=== PATIENT | female | born 1935 | race Caucasian/White ===

== ENCOUNTER 2017-08-01 20:25 | Emergency (ER) | payer OTHER ==
[~2017-08-01] VITALS: Ht 162.6 cm; Wt 93.9 kg
[~2017-08-01 20:25] MED LIST: ADULT LOW DOSE81 MG PO; ALBUTEROL2.5 MG/0.5 INH; ALENDRONATE SOD40 MG PO; ALL DAY ALLERGY10 M3 PO; ALLEGRA; ALLEGRA180 MG; AMARYL1 MG PO; AMITRIPTYLINE H50 M2 PO; AMITRIPTYLINE H50 M3 GT; ARICEPT 5 MG TAB5 MG PO; ARICEPT10 M1 PO; ATENOLOL 25 MG25 M1 PG; ATENOLOL 25MG T25 M1 PO; B COMPLEX1 EACH PO; BENTYL 20 MG TA20 M1 PO; BENTYL20 MG PO; CENTRUM SILVER1 EAC2 PO; COLACE100 MG PO; COUMADIN 1MG TAB1 M1 PO; COUMADIN 2 MG TA2 M1 PO; DIAZEPAM 5 MG5 M1 PO; DIAZEPAM 5 MG5 MG PO; DUONEB 2.5-0.5 M3 ML INH; ENOXAPARIN30 MG/0.1 SUBQ; FLAGYL 250 MG250 MG PO; FOSAMAX 70 MG T70 MG PO; GLUCOPHAGE XR500 MG; HCTZ PO; HYDROCHLOROTHIA25 M1 PO; HYDROCODON-ACE1 EAC7 PO; HYDROCODONE-APA1 TA1 PO; KEFLEX500 M1 PO; KEFLEX500 MG PO; LANTUS100 UNIT/M SUBQ; LEVAQUIN 500 M500 M2 PO; LIPITOR10 MG PO; LOVASTAT20; LOVASTAT20 PO; MEDROLDOSEPACK PO; METFORMIN HCL500 MG PO; METOCLOPRAMIDE10 MG PO; MIRALAX17 GM PO; NEURONTIN 300300 M1 PO; NORCO 5-325 TA1 EACH PO; NOVOLIN R100 UNIT/3 IJ; NOVOLOG100 UNIT/1 SUBQ; OMEPRAZOLE40 MG PO; PACERONE 200 M200 M1 PO; PAROXETINE HCL40 MG PO; PEXEVA30 MG PO; PREDNISONE 10 M10 MG PO; PROPRANOLOL 1010 MG PO; PROPRANOLOL 4040 M1 PO; PROTONIX40 M1 PO; PYRIDIUM200 MG PO; REQUIP0.5 MG PO; REQUIP3 MG PO; ROBITUSSIN100 MG/53 PO; SEROQUEL 50 MG50 MG PO; SINGULAIR 10 MG10 M1 PO; SUPER B COMPLE150 MG PO; TOPROL XL25 MG PO; TRAMADOL 50 MG50 MG; TYLENOL325 MG PO; VITAMIN B12; VITAMIN D32000 UNI1 PO; ZOLOFT50 MG PO
[2017-08-01] MEDS ORDERED: NORCO 5-325 TA1 EACH PO (20:51)
[2017-08-01] MEDS ORDERED: FLEXERIL PO (20:51)
[2017-08-01 21:05] VITALS: BP 147/78
== END 2017-08-01 21:05 | disposition home or self-care (01) ==
LOC: M.ERS 20:25
DX: G89.29 Other chronic pain (principal); M25.511 Pain in right shoulder; E11.9 Type 2 diabetes mellitus without complications; I48.91 Unspecified atrial fibrillation; Z90.710 Acquired absence of both cervix and uterus; Z98.890 Other specified postprocedural states; Z79.4 Long term (current) use of insulin

== ENCOUNTER 2017-11-04 17:33 | Emergency (ER) | payer OTHER ==
[~2017-11-04] VITALS: Ht 157.5 cm; Wt 90.7 kg
[~2017-11-04 17:33] MED LIST changes: +FLEXERIL PO
[2017-11-04] MEDS ORDERED: MIDODRINE HCL 55 M1 PO (17:52)
[2017-11-04] MEDS ORDERED: OMEPRAZOLE40 MG PO (17:53)
[2017-11-04] MEDS ORDERED: POTASSIUM20 PO (17:54)
[2017-11-04] MEDS ORDERED: LOVASTATIN 20 M20 MG PO (17:55)
[2017-11-04] MEDS ORDERED: CYMBALTA60 MG PO (17:55)
[2017-11-04] MEDS ORDERED: HYDROXYZINE HCL25 M1 PO (17:56)
[2017-11-04] MEDS ORDERED: MYSOLINE50 MG PO (17:57)
[2017-11-04] MEDS ORDERED: BUSPIRONE HCL10 MG PO (17:58)
[2017-11-04 18:04] LABS: ABSOLUTE BASOPHILS 0.1 thou/uL (0.0-0.2); ABSOLUTE EOSINOPHILS 0.1 thou/uL (0.0-0.7); ABSOLUTE LYMPHOCYTES 1.5 thou/uL (0.8-5.3); ABSOLUTE MONOCYTES 0.5 thou/uL (0.0-1.2); ABSOLUTE NEUTROPHILS 5.9 thou/uL (1.6-8.1); BASOPHILS 0.6 %; EOSINOPHILS 1.6 %; HEMATOCRIT 40.2 % (37.0-47.0); HEMOGLOBIN 12.8 gm/dL (12.0-15.0); LYMPHOCYTES 18.7 %; MCH 27.8 pg (26.0-34.0); MCHC 31.9 g/dL (28.0-37.0); MCV 87.2 fL (80.0-100.0); MONOCYTES 6.2 %; NUCLEATED RBCS 0 /100WBC; PLATELET COUNT* 240 thou/uL (150-400); POLYS 72.9 %; RBC 4.61 mil/uL (4.20-5.00); WBC 8.1 thou/uL (4.0-11.0)
[2017-11-04 18:05] LABS: CALCIUM 8.6 mg/dL (8.5-10.1); CREATININE 1.3 mg/dL (0.6-1.3); POTASSIUM 4.7 mmol/L (3.5-5.1)
[2017-11-04 18:09] LABS: ALBUMIN 3.1 g/dL (3.4-5.0); TOTAL BILIRUBIN 0.3 mg/dL (<0.1-1.0); TOTAL PROTEIN 6.8 g/dL (6.4-8.2)
[2017-11-04 19:30] LABS: URINE BILIRUBIN NEGATIVE (Negative); URINE BLOOD NEGATIVE (Negative); URINE CLARITY CLEAR; URINE COLOR YELLOW; URINE GLUCOSE-RANDOM 2+ (Negative); URINE KETONES NEGATIVE (Negative); URINE LEUKOCYTES-REFLEX NEGATIVE (Negative); URINE NITRITE-REFLEX NEGATIVE (Negative); URINE PROTEIN NEGATIVE (Negative); URINE SPECIFIC GRAVITY >= 1.030 (1.005-1.030); URINE UROBILINOGEN 0.2 E.U./dl (0.2-1.0)
[2017-11-04 20:00] LABS: INR 1.1; PROTIME 10.7 Seconds (9.20-11.50)
[2017-11-04 20:45] VITALS: BP 134/80
== END 2017-11-04 20:45 | disposition home or self-care (01) ==
LOC: M.ERS 17:33
PROVIDERS: Nurse Practitioner Family
DX: S16.1XXA Strain of muscle, fascia and tendon at neck level, initial encounter (principal); M25.551 Pain in right hip; J44.9 Chronic obstructive pulmonary disease, unspecified; I10 Essential (primary) hypertension; I48.91 Unspecified atrial fibrillation; E11.9 Type 2 diabetes mellitus without complications; G30.9 Alzheimer's disease, unspecified; F02.80 Dementia in other diseases classified elsewhere, unspecified severity, without behavioral disturbance, psychotic disturbance, mood disturbance, and anxiety; W19.XXXA Unspecified fall, initial encounter; Y93.01 Activity, walking, marching and hiking; Y92.89 Other specified places as the place of occurrence of the external cause; Y99.8 Other external cause status

== ENCOUNTER 2018-05-14 10:54 | Emergency (ER) | payer OTHER ==
[~2018-05-14] VITALS: Ht 160 cm; Wt 86.2 kg
[~2018-05-14 10:54] MED LIST changes: +BUSPIRONE HCL10 MG PO; +CYMBALTA60 MG PO; +HYDROXYZINE HCL25 M1 PO; +LOVASTATIN 20 M20 MG PO; +MIDODRINE HCL 55 M1 PO; +MYSOLINE50 MG PO; +POTASSIUM20 PO
[2018-05-14] MEDS ORDERED: COUMADIN 2 MG TA2 M1 PO (11:17)
[2018-05-14] MEDS ORDERED: VITAMIN B COMP1 EACH PO (11:17)
[2018-05-14] MEDS ORDERED: PROPRANOLOL 1010 MG PO (11:18)
[2018-05-14] MEDS ORDERED: MIGRANOW KIT50 MG PO (11:18)
[2018-05-14] MEDS ORDERED: LASIX 20 MG TAB20 MG PO (11:19)
[2018-05-14] MEDS ORDERED: IRON325 PO (11:19)
[2018-05-14] MEDS ORDERED: VITAMIN D1000 UNI1 PO (11:19)
[2018-05-14] MEDS ORDERED: LANTUS SUBQ (11:19)
[2018-05-14] MEDS ORDERED: CLARITIN10 MG PO (11:20)
[2018-05-14] MEDS ORDERED: IPRATROPIU0.2 MG/1 M INH (11:20)
[2018-05-14] MEDS ORDERED: NORCO 5-325 TA1 EACH PO (13:41)
[2018-05-14 13:42] VITALS: BP 141/72
== END 2018-05-14 13:48 | disposition home or self-care (01) ==
LOC: M.ERS 10:54
DX: S83.8X1A Sprain of other specified parts of right knee, initial encounter (principal); S20.02XA Contusion of left breast, initial encounter; S60.222A Contusion of left hand, initial encounter; E11.9 Type 2 diabetes mellitus without complications; I10 Essential (primary) hypertension; I48.91 Unspecified atrial fibrillation; Z90.710 Acquired absence of both cervix and uterus; Z79.4 Long term (current) use of insulin; Z90.49 Acquired absence of other specified parts of digestive tract; W18.39XA Other fall on same level, initial encounter; Y93.89 Activity, other specified; Y92.89 Other specified places as the place of occurrence of the external cause; Y99.8 Other external cause status

== ENCOUNTER 2018-07-09 16:19 | Inpatient (IN) | payer OTHER ==
[~2018-07-09] VITALS: Ht 160 cm; Wt 88.5 kg
[~2018-07-09 16:19] MED LIST changes: +CLARITIN10 MG PO; +IPRATROPIU0.2 MG/1 M INH; +IRON325 PO; +LANTUS SUBQ; +LASIX 20 MG TAB20 MG PO; +MIGRANOW KIT50 MG PO; +VITAMIN B COMP1 EACH PO; +VITAMIN D1000 UNI1 PO
[2018-07-09 16:24] VITALS: BP 145/64
[2018-07-09] MEDS ORDERED: BUSPIRONE HCL5 MG PO (16:27)
[2018-07-09] MEDS ORDERED: VITAMINC500 PO (16:27)
[2018-07-09] MEDS ORDERED: LIDOCARE1 EACH TOP (16:29)
[2018-07-09] MEDS ORDERED: CRESTOR20 MG PO (16:31)
[2018-07-09] MEDS ORDERED: IMITREX 50 MG T50 MG PO (16:32)
[2018-07-09 16:49] LABS: ABSOLUTE BASOPHILS 0.1 thou/uL (0.0-0.2); ABSOLUTE EOSINOPHILS 0.1 thou/uL (0.0-0.7); ABSOLUTE LYMPHOCYTES 2.3 thou/uL (0.8-5.3); ABSOLUTE MONOCYTES 0.8 thou/uL (0.0-1.2); ABSOLUTE NEUTROPHILS 7.5 thou/uL (1.6-8.1); BASOPHILS 0.6 %; EOSINOPHILS 1.2 %; HEMATOCRIT 40.4 % (37.0-47.0); HEMOGLOBIN 12.8 gm/dL (12.0-15.0); LYMPHOCYTES 21.4 %; MCHC 31.8 g/dL (28.0-37.0); MCV 88.3 fL (80.0-100.0); MONOCYTES 7.8 %; MPV 9.6 fl. (7.2-11.1); NUCLEATED RBCS 0 /100WBC; PLATELET COUNT* 269 thou/uL (150-400); RBC 4.57 mil/uL (4.20-5.00); RDW-CV 18.1 % (10.5-14.5); WBC 10.8 thou/uL (4.0-11.0)
[2018-07-09 16:56] LABS: ANION GAP 3 mmol/L (7-16); BUN 22 mg/dL (7-18); CALCIUM 8.4 mg/dL (8.5-10.1); CHLORIDE 102 mmol/L (98-107); CO2 35 mmol/L (21-32); CREATININE 1.4 mg/dL (0.6-1.3); GLUCOSE 120 mg/dL (70-99); INR 4.5; POTASSIUM 4.7 mmol/L (3.5-5.1); PROTIME 45.2 Seconds (9.20-11.50); SODIUM 140 mmol/L (136-145)
[2018-07-09 17:06] LABS: ALBUMIN 3.2 g/dL (3.4-5.0); ALKALINE PHOSPHATASE 110 U/L (46-116); LIPASE 304 U/L (73-393); NT-PRO BRAIN NAT PEPTIDE 330 pg/mL (<300); SGOT 20 U/L (15-37); SGPT 22 U/L (30-65); TOTAL BILIRUBIN 0.3 mg/dL (<0.1-1.0); TOTAL PROTEIN 7.4 g/dL (6.4-8.2); TROPONIN-I LEVEL <0.06 ng/mL (<0.06)
[2018-07-09 19:29] VITALS: BP 115/57
[2018-07-09 20:06] VITALS: BP 134/70
[2018-07-10] VITALS (7 sets, daily range): BP systolic 92–151; BP diastolic 41–63
[2018-07-10 04:58] LABS: ABSOLUTE EOSINOPHILS 0.1 thou/uL (0.0-0.7); ABSOLUTE LYMPHOCYTES 1.9 thou/uL (0.8-5.3); ABSOLUTE MONOCYTES 0.8 thou/uL (0.0-1.2); ABSOLUTE NEUTROPHILS 6.3 thou/uL (1.6-8.1); BASOPHILS 0.3 %; EOSINOPHILS 1.3 %; HEMATOCRIT 34.8 % (37.0-47.0); HEMOGLOBIN 11.1 gm/dL (12.0-15.0); LYMPHOCYTES 20.7 %; MCH 28.2 pg (26.0-34.0); MCV 88.2 fL (80.0-100.0); MONOCYTES 8.4 %; MPV 9.8 fl. (7.2-11.1); NUCLEATED RBCS 0 /100WBC; PLATELET COUNT* 205 thou/uL (150-400); POLYS 69.3 %; RBC 3.95 mil/uL (4.20-5.00); RDW-CV 18.2 % (10.5-14.5); WBC 9.1 thou/uL (4.0-11.0)
[2018-07-10 05:30] LABS: CALCIUM 8.4 mg/dL (8.5-10.1); CREATININE 1.3 mg/dL (0.6-1.3); POTASSIUM 4.7 mmol/L (3.5-5.1)
--- NOTE | 2018-07-10 10:56 | EKG ---
[place] [address] ELECTROCARDIOGRAM REPORT Name: GLENROY ROBLERO Room: [address] ADM IN M.R.#: [id number] Admission: 07/09/18 Attend Phys: Estevan Rivera MD Discharge: Date of : 39 Report #: [id number] THIS REPORT FOR: //name// [facility] ED Test Date: 2018-07-09 Test Time: 16:26:48 Pat Name: GLENROY ROBLERO Department: Room: [facility] Gender: F Closet Builder: Carter DAMICO : 1935 Requested By: Marcelle Sifuentes Order Number: [id number] MD: Umang Portillo Measurements Intervals [place] Rate: 54 P: 55 MD: 155 QRS: -29 QRSD: 88 T: 113 QT: 487 QTc: 462 Interpretive Statements Sinus bradycardia Borderline left axis deviation Abnormal R-wave progression, late transition Borderline repolarization abnormality Compared to ECG 06/29/2017 10:35:31 No significant changes Electronically Signed On 07-10-2018 10:56:21 ASSEMBLER RUBBER [employer]OTWEAR by Umang Portillo [email or web address] <ELECTRONICALLY SIGNED> By: Umang Portillo MD, FAC 07/10/18 1056 1626 1626 Umang Portillo MD, [facility] /EPI
[2018-07-10 11:42] LABS: INR 3.5; PROTIME 35.5 Seconds (9.20-11.50)
--- NOTE | 2018-07-10 15:26 | 2DMMODE ---
[place] [address] 2 D/M-MODE ECHOCARDIOGRAM Name: GLENROY ROBLERO Room: [address] IN [facility]#: [id number] Admission: 07/09/18 Attend Phys: Estevan Rivera, Discharge: Date of : 39 Date of Service: 07/10/18 1526 Report #: [id number] THIS REPORT FOR: //name// APPROVED REPORT Study performed: 07/10/2018 11:19:54 EXAM: Comprehensive 2D, Doppler, and color-flow Echocardiogram Patient Location: In-Patient Room #: [facility] Status: routine BSA: 1.91 HR: 61 bpm BP: 102/57 mmHg Rhythm: NSR Other Information Study Quality: Good Indications Chest Pain 2D Dimensions IVSd: 12.49 (7-11mm) LVOT Diam: 20.46 (18-24mm) LVDd: 48.97 mm PWd: 12.82 (7-11mm) Ascending Ao: 31.70 (22-36mm) LVDs: 27.37 (25-40mm) Aortic Root: 35.26 mm Volumes Left Atrial Volume (Systole) LA ESV Index: 24.50 mL/m2 Aortic Valve AoV Peak Norman.: 1.02 m/s AO Peak Gr.: 4.15 mmHg LVOT Max P.64 mmHg AO Mean Gr.: 2.34 mmHg LVOT Mean P.48 mmHg LVOT Max V: 0.95 m/s AO V2 VTI: 21.39 cm LVOT Mean V: 0.55 m/s NAINA (VTI): 3.57 cm2 LVOT V1 VTI: 23.25 cm Mitral Valve E/A Ratio: 1.07 MV Decel. Time: 215.48 ms MV E Max Norman.: 0.73 m/[place] [address] 2 D/M-MODE ECHOCARDIOGRAM Name: GLENROY ROBLERO Room: [address] IN .R.#: [id number] Admission: 07/09/18 Attend Phys: Estevan Rivera, Discharge: Date of : 39 Date of Service: 07/10/18 1526 Report #: [id number] MV PHT: 62.49 ms MVA (PHT): 3.52 cm2 TDI E/Lateral E': 8.11 E/Medial E': 9.13 Medial E' Norman.: 0.08 m/s Lateral E' Norman.: 0.09 m/s Pulmonary Valve PV Peak Norman.: 0.77 m/s PV Peak Gr.: 2.40 mmHg Tricuspid Valve RAP Estimate: 5.00 mmHg TR Peak Gr.: 44.61 mmHg RVSP: 49.00 mmHg PA Pressure: 49.00 mmHg Left Ventricle The left ventricle is normal size. There is normal LV segmental wall motion. Mild concentric left ventricular hypertrophy. Left ventricular systolic function is normal. LVEF is 60-65%. Transmitral Doppler flow pattern suggests impaired LV relaxation. Right Ventricle The right ventricle is normal size. The right ventricular systolic function is normal. Atria Left atrium is mildly dilated. Right atrium is mildly dilated. Aortic Valve The aortic valve is normal in structure. No aortic regurgitation is present. There is no aortic valvular stenosis. Mitral Valve The mitral valve is normal in structure. Trace mitral regurgitation. No evidence of mitral valve stenosis. Tricuspid Valve The tricuspid valve is normal in structure. Mild tricuspid regurgitation. Moderate pulmonary hypertension. Pulmonic Valve The pulmonary valve is normal in structure. Mild [place] [address] 2 D/M-MODE ECHOCARDIOGRAM Name: GLENROY ROBLERO Room: [address] [facility]#: [id number] Admission: 07/09/18 Attend Phys: Estevan Rivera, Discharge: Date of : 39 Date of Service: 07/10/18 1526 Report #: [id number] Great Vessels The aortic root is normal in size. IVC is normal in size and collapses >50% with inspiration. Pericardium There is no pericardial effusion. <Conclusion> The left ventricle is normal size. Mild concentric left ventricular hypertrophy. Left ventricular systolic function is normal. LVEF is 60-65%. Transmitral Doppler flow pattern suggests impaired LV relaxation. Left atrium is mildly dilated. Right atrium is mildly dilated. Mild tricuspid regurgitation. Moderate pulmonary hypertension. IVC is normal in size and collapses >50% with inspiration. <ELECTRONICALLY SIGNED> By: Ameya Santana MD, FACC 07/10/18 1526 1526 1526 Ameya Santana MD, FACC /INF
[2018-07-11] VITALS (7 sets, daily range): BP systolic 84–113; BP diastolic 31–52
--- NOTE | 2018-07-11 12:22 | CON ---
[address] [address] CONSULTATION Name: GLENROY ROBLERO Room: [address] IN M.R.#: [id number] Admission: 07/09/18 Attend Phys: Estevan Rivera MD Discharge: Date of : 37 Report #: [id number] THIS REPORT FOR: //name// CC: Estevan Orr HISTORY OF PRESENT ILLNESS: The patient is an 83-year-old female who states that she came to the Emergency Room because she was trembling and did not feel well. She found it difficult to use her walker. She had weakness in the arms and legs. The patient has spent the night in the hospital on IV fluids. She states this morning she does feel better. She is no longer shaky, but she is not completely back to normal either. The patient also uses home oxygen. PAST MEDICAL HISTORY: Diabetes, C. diff, atrial fibrillation, dementia, hypertension. 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 MEDICATIONS: At home, Fosamax 70 mg weekly, ropinirole 3 mg at bedtime, donepezil 20 mg at bedtime, Seroquel 100 mg at bedtime, gabapentin 600 mg t.i.d., amiodarone 200 mg daily, midodrine 10 mg t.i.d., omeprazole daily, potassium 20 mEq daily, duloxetine 60 mg daily, primidone 150 mg at bedtime, warfarin 2 mg daily, vitamin B complex daily, propranolol 120 mg at bedtime, vitamin D 1000 units b.i.d., ferrous sulfate 325 mg daily, furosemide 20 mg daily, Lantus insulin 5 units at bedtime, Atrovent solution, loratadine 10 mg daily, vitamin C 500 mg daily, buspirone 5 mg b.i.d., topical lidocaine twice a day, Crestor 20 mg daily, sumatriptan 50 mg p.r.n. headache. ALLERGIES: None. PHYSICAL EXAMINATION: VITAL SIGNS: Temperature 36.9, pulse rate 64, respiratory rate 18, blood pressure 141/54, bedside pulse oximetry 96% on 2 liters nasal cannula. NEUROLOGIC: Cranial nerves 2-12 are grossly intact. Motor exam demonstrates symmetrical strength in all 4 extremities with tone and bulk normal. Reflexes are trace throughout. Plantar responses are flexor. Coordination showed no evidence of dysmetria. LABORATORY DATA: White blood cell count 9.1; hemoglobin 11.1; hematocrit 34.8; MCV 88.2; platelet count 205,000. INR 3.5. The patient's INR on admission was 4.5. Urinalysis not done. Chemistry: Sodium 142, potassium 4.7, chloride 105, carbon dioxide 34, BUN 29, creatinine 1.3, GFR 39, glucose 208, calcium 8.4, total bilirubin 0.3, AST 20, ALT 22, alkaline phosphatase 110, total protein 7.4, albumin 3.2, lipase 304. IMAGING STUDIES: CT scan of the head demonstrates moderate microvascular [facility] [address] [place] [address] CONSULTATION Name: GLENROY ROBLERO HARRIS Room: [address] IN [facility]#: [id number] Admission: 07/09/18 Attend Phys: Estevan Rivera MD Discharge: Date of : 39 Report #: [id number]. IMPRESSION: This patient takes quite a few medications. Perhaps simplifying this medication list would be of benefit to the patient. I would continue donepezil 20 mg at bedtime; however, quetiapine 100 mg at bedtime perhaps can be reduced. The patient is also on gabapentin 600 mg 3 times a day, perhaps this could be reduced as well. The patient must have a history of restless leg syndrome and essential tremor. She is on ropinirole at bedtime for restless legs and primidone for essential tremor. I also question whether the patient is taking her medication properly as her INR was 4.5 on admission. She only takes 2 mg of warfarin daily. I thank you for your kind referral of the patient and we will continue to follow her with you. <ELECTRONICALLY SIGNED> By: Tata Claros DO 07/11/18 1222 1344 [id number] Claros DO /nt
== END 2018-07-11 16:02 | disposition home health service (06) | DRG 92 ==
LOC: M.ERS 16:19 → M.TBA-ER 18:22 → M.2W 18:22
PROVIDERS: Personal Emergency Response Attendant; ADMIT Internal Medicine
DX: G24.01 Drug induced subacute dyskinesia (principal); D68.9 Coagulation defect, unspecified; D68.59 Other primary thrombophilia; I10 Essential (primary) hypertension; E11.9 Type 2 diabetes mellitus without complications; G30.9 Alzheimer's disease, unspecified; F02.80 Dementia in other diseases classified elsewhere, unspecified severity, without behavioral disturbance, psychotic disturbance, mood disturbance, and anxiety; F32.9 Major depressive disorder, single episode, unspecified; F41.9 Anxiety disorder, unspecified; I48.0 Paroxysmal atrial fibrillation; G25.81 Restless legs syndrome; G25.0 Essential tremor; G43.909 Migraine, unspecified, not intractable, without status migrainosus; G47.00 Insomnia, unspecified; Z90.49 Acquired absence of other specified parts of digestive tract; Z90.710 Acquired absence of both cervix and uterus; Z93.3 Colostomy status

== ENCOUNTER 2018-08-21 19:16 | Inpatient (IN) | payer OTHER ==
[~2018-08-21] VITALS: Ht 152.4 cm; Wt 85.1 kg
--- NOTE | ~2018-08-21 | CON ---
[address] [address] CONSULTATION Name: GLENROY ROBLERO Room: [address] IN .R.#: [id number] Admission: 08/21/18 Attend Phys: Huseyin Park MD Discharge: Date of : 37 Report #: [id number] THIS REPORT FOR: //name// CC: Boni Park DATE OF SERVICE: 08/25/2018 REASON FOR CONSULTATION: Dysphagia to solids. HISTORY OF PRESENT ILLNESS: This is an 83-year-old female who was admitted to the hospital with shortness of air and confusion. The patient has COPD and is on 2 liters of O2 at home. She also is on anticoagulation therapy, Coumadin for history of AFib and DVTs. Her daughter reports that the patient was eating a peach and it got stuck in her throat. She has been having more problems with dysphagia recently. The patient also has a colostomy bag as she has had bowel rupture in 2016 and now has colostomy due to the same. PAST MEDICAL HISTORY: Significant for history of gallbladder disease, status post cholecystectomy; hysterectomy; appendectomy; tubal ligation; history of bowel rupture, status post colostomy in 09/2015; DVT; AFib; Alzheimer disease; hypertension; tubal ; COPD, requiring 2 liters of O2 at home; diabetes and dyslipidemia. ALLERGIES: No known drug allergy. MEDICATIONS: Please refer to MAR. SOCIAL HISTORY: The patient lives at home. She has COPD and requires 2 liters of O2. Denies alcohol use. FAMILY HISTORY: Noncontributory. PHYSICAL EXAMINATION: VITAL SIGNS: Reveals blood pressure of 122/59, respirations 16, pulse 63 and temperature 98. LUNGS: Clear. CARDIOVASCULAR: Regular. ABDOMEN: Soft. Colostomy bag in place, without any blood in it. LABORATORY DATA: Labs reveal sodium of 141, potassium 4.4, BUN is 14, creatinine 1.0 and glucose 91. Liver function tests all within normal limits. Albumin is 2.7. WBC is 6.5 with hemoglobin of 11 and platelet of 261,000. INR is 2.5 with a protime of 25. ASSESSMENT AND PLAN: The patient with dysphagia, [place] [id number] CONSULTATION Name: GLENROY ROBLERO Room: [address] IN [facility]#: [id number] Admission: 08/21/18 Attend Phys: Huseyin Park MD Discharge: Date of : 37 Report #: [id number] therapy. We will perform an upper endoscopy to further evaluate her esophagus. I will make further recommendation based on finding. The patient is agreeable with plan. By: 1132 1228Monica Lewis MD /nt
[~2018-08-21 19:16] MED LIST changes: +BUSPIRONE HCL5 MG PO; +CRESTOR20 MG PO; +IMITREX 50 MG T50 MG PO; +LIDOCARE1 EACH TOP; +VITAMINC500 PO
[2018-08-21 19:29] VITALS: BP 149/70
[2018-08-21 20:09] LABS: ABSOLUTE BASOPHILS 0.1 thou/uL (0.0-0.2); ABSOLUTE LYMPHOCYTES 1.2 thou/uL (0.8-5.3); ABSOLUTE MONOCYTES 0.4 thou/uL (0.0-1.2); EOSINOPHILS 0.4 %; HEMATOCRIT 38.3 % (37.0-47.0); HEMOGLOBIN 12.2 gm/dL (12.0-15.0); MCHC 31.8 g/dL (28.0-37.0); MCV 88.1 fL (80.0-100.0); MONOCYTES 6.6 %; MPV 8.9 fl. (7.2-11.1); NUCLEATED RBCS 0 /100WBC; PLATELET COUNT* 296 thou/uL (150-400); RBC 4.35 mil/uL (4.20-5.00); RDW-CV 18.1 % (10.5-14.5); WBC 6.8 thou/uL (4.0-11.0)
[2018-08-21 20:18] LABS: INR 2.6; PROTIME 26.3 Seconds (9.20-11.50)
[2018-08-21 20:30] LABS: ANION GAP 10 mmol/L (7-16); BUN 6 mg/dL (7-18); CALCIUM 8.2 mg/dL (8.5-10.1); CHLORIDE 101 mmol/L (98-107); CO2 30 mmol/L (21-32); GLUCOSE 126 mg/dL (70-99); POTASSIUM 3.2 mmol/L (3.5-5.1); SODIUM 141 mmol/L (136-145)
[2018-08-21 20:40] LABS: ALBUMIN 2.7 g/dL (3.4-5.0); ALKALINE PHOSPHATASE 100 U/L (46-116); NT-PRO BRAIN NAT PEPTIDE 811 pg/mL (<300); SGOT 30 U/L (15-37); SGPT 15 U/L (30-65); TOTAL BILIRUBIN 0.4 mg/dL (<0.1-1.0); TOTAL PROTEIN 6.4 g/dL (6.4-8.2); TROPONIN-I LEVEL <0.06 ng/mL (<0.06)
--- NOTE | 2018-08-21 21:30 | NUR ---
PATIENT UP TO BSC WITH ASSIST OF RN X 2. URINE SPECIMEN OBTAINED AND SENT TO LAB
[2018-08-21 21:43] LABS: URINE BILIRUBIN NEGATIVE (Negative); URINE BLOOD 2+ (Negative); URINE CLARITY CLEAR; URINE COLOR YELLOW; URINE GLUCOSE-RANDOM NEGATIVE (Negative); URINE KETONES 2+ (Negative); URINE LEUKOCYTES-REFLEX NEGATIVE (Negative); URINE NITRITE-REFLEX NEGATIVE (Negative); URINE PROTEIN NEGATIVE (Negative); URINE UROBILINOGEN 0.2 E.U./dl (0.2-1.0)
[2018-08-21 21:51] LABS: BACTERIA-REFLEX 1-9 Few /HPF (None Seen); CRYSTALS None Seen /LPF (None Seen); MUCUS None Seen strn/LPF (None Seen); SQUAMOUS >10 Many /LPF (0-3); URINE RBC 0-2 Rare /HPF (0-2); URINE WBC-REFLEX 0-5 Rare /HPF (0-5)
[2018-08-21 21:52] LABS: CASTS None Seen /LPF (None Seen)
[2018-08-21 23:07] VITALS: BP 135/66
[2018-08-21 23:10] VITALS: BP 134/64
[2018-08-22] VITALS: BP 126/55
--- NOTE | 2018-08-22 05:41 | NUR ---
PATIENT ARRIVED ON FLOOR FROM ER ABOUT 2300. PATIENT ADMISSION HISTORY AND ASSESSMENT WAS COMPLETED CHARTED. PATIENT WEARS 2L LITERS OF OXYGEN AT HOME AND IS ON 2L PER NC SATTING 100%. PATIENT HAS COMPLAINED OF A HEADACHE AND TAILBONE PAIN. PAIN MEDICINE WAS GIVEN THREE TIMES WITH SOME RELIEF. WILL CONTINUE TO MONITOR.
[2018-08-22 08:50] VITALS: BP 139/74
--- NOTE | 2018-08-22 10:25 | EKG ---
[place] [address] ELECTROCARDIOGRAM REPORT Name: GLENROY ROBLERO Room: [address] ADM IN M.R.#: [id number] Admission: 08/21/18 Attend Phys: Huseyni Park MD Discharge: Date of : 37 Report #: [id number] THIS REPORT FOR: //name// [facility] ED Test Date: 2018-08-21 Test Time: 19:29:43 Pat Name: GLENROY ROBLERO Department: Room: [facility] Gender: F Childbirth Educator: ZACARIAS : 1935 Requested By: Mulu Weller Order Number: [id number] MD: Ghanshyam Stubbs Measurements Intervals [place] Rate: 72 P: -2 NM: 123 QRS: -47 QRSD: 90 T: -60 QT: 597 QTc: 654 Interpretive Statements Sinus rhythm Left anterior fascicular block Abnormal R-wave progression, late transition Nonspecific T abnormalities, diffuse leads Prolonged QT interval Baseline wander in lead(s) II,III,aVF,V2,V5 Compared to ECG 07/09/2018 16:26:48 Left anterior fascicular block now present T-wave abnormality now present Prolonged QT interval now present Sinus bradycardia no longer present Electronically Signed On 08-22-2018 10:25:08 RESEARCH AND DEVELOPMENT SPECIALIST by Ghanshyam Stubbs [email or web address] <ELECTRONICALLY SIGNED> By: Ghanshyam Stubbs MD, [facility] 08/22/18 1025 28 28 Ghanshyam Stubbs MD, [facility] /EPI
[2018-08-22 16:00] VITALS: BP 108/66
--- NOTE | 2018-08-22 17:29 | NUR ---
SW unable to meet with pt on unit today; from previous record, pt lives at home with supportive dtr. Pt was current with [facility] services. Pt has oxygen, RW, cane, wc. SW to continue to follow to assist with safe dc planning.
--- NOTE | 2018-08-22 18:01 | NUR ---
PATIENT HAS BEEN ALERT AND ORIENTED TODAY, PLEASANT BUT VERY ANXIOUS. VITAL SIGNS STABLE ON 2 LITERS OF OXYGEN THROUGH NASAL CANNULA. PAIN THIS MORNING THAT WAS GENAERALIZED IN NATURE. PATIENT WAS UP WITH ASSIST AND WALKER. BED ALARM ON AND CALL LIGHT IS IN REACH, WILL CONTINUE TO MONITOR.
[2018-08-22 20:00] VITALS: BP 130/62
[2018-08-23 04:07] LABS: HEMATOCRIT 34.3 % (37.0-47.0); MCH 28.5 pg (26.0-34.0); MCV 89.2 fL (80.0-100.0); MPV 9.5 fl. (7.2-11.1); RBC 3.84 mil/uL (4.20-5.00); RDW-CV 17.5 % (10.5-14.5); WBC 6.5 thou/uL (4.0-11.0)
[2018-08-23 04:16] LABS: CALCIUM 7.8 mg/dL (8.5-10.1); POTASSIUM 4.4 mmol/L (3.5-5.1)
--- NOTE | 2018-08-23 06:03 | NUR ---
DROWSY, AROUSABLE TO TACTILE STIMULI, VS WNL, REMAINS ON OXYGEN 2L PER NC, NO S/S OF RESPIRATORY DISTRESS NOTED. RESTING QUIETLY WITH EYES CLOSED MOST OF SHIFT, TOOK ALL SCHEDULED MEDICATIONS AT HS WITHOUT S/S OF ASPIRATION. DENIES PAIN OR DISCOMFORT, FALL PRECAUTIONS IN PLACE.
[2018-08-23 07:55] VITALS: BP 142/69
--- NOTE | 2018-08-23 16:14 | NUR ---
PATIENT TURNED Q2. PATIENT WAS ASSISTED UP TO BSC TO VOID X 1 THIS SHIFT, OTHERWISE PATIENT WAS INCONTINENT. IV REMAINS SL. [address] ST ORDERED TO SEE PATIENT, PER SPEECH PATIENT NEEDS POSSIBLE EVAL FROM GI. DR. STODDARD NOTIFIED AND GI CONS FOR GLOBLUS SENSATION, AWAITING CALL BACK. PPI ORDERED FOR PATIENT. PATIENT SAT UP IN CHAIR THIS AM BUT APPROX ONLY AN HOUR AND PATIENT WAS READY TO GO BACK TO BED.
[2018-08-23 16:34] VITALS: BP 138/60
[2018-08-23 19:40] VITALS: BP 107/57
[2018-08-24 02:01] VITALS: BP 129/74
[2018-08-24 02:12] LABS: GLYCOHEMOGLOBIN (HGB A1C) 6.8 % (4.8-5.6)
[2018-08-24 05:21] LABS: INR 2.6; PROTIME 26.3 Seconds (9.20-11.50)
[2018-08-24 08:00] VITALS: BP 120/41
[2018-08-24 13:47] VITALS: BP 123/61
[2018-08-24 17:05] VITALS: BP 103/69
[2018-08-24 20:07] VITALS: BP 104/62
[2018-08-25 04:32] LABS: INR 2.5; PROTIME 25.1 Seconds (9.20-11.50)
--- NOTE | 2018-08-25 05:49 | NUR ---
PATIENT C/O HEADACHE AT BEGINNING OF SHIFT WHICH WAS RESOLVED WITH TYLENOL. PT HAS NO IV ACCESS BUT NEEDS AN IV FOR EGD TODAY. 2 UNSUCCESSFUL ATTEMPTS BY THIS RN AND 1 UNSUCCESSFUL ATTEMPT BY STEREO EQUIPMENT SALESPERSON. LABEL STAMPER TO PLACE IV. PATIENT SLEPT WELL OVERNIGHT WITH NO C/O OF PAIN AFTER RESOLUTION OF HEADACHE. HAS BEEN NPO SINCE MIDNIGHT IN PREPARATION FOR SCHEDULED EGD.
[2018-08-25 07:10] VITALS: BP 122/59
[2018-08-25 10:21] VITALS: BP 122/59
--- NOTE | 2018-08-25 15:55 | NUR ---
ASSESSMENT COMPLETE. PT ALERT AND ORIENTED X4. PT FORGETFUL AT TIMES. PT HAD EGD THIS AM. SEE DR DAVIS NOTES FOR DETAILS. PT HAS BARIUM SWALLOW TOMORROW. PT GIVEN IV PAIN MEDS ONCE FOR BACK AND HEAD PAIN FROM RECENT FALL AT HOME. PT DENIES N/V, TOLERATING MEALS. COLOSTOMY INTACT. PT HAS IV IN RIGHT FOREARM, STARTED WITH INFUSION NURSE. PT IS FALL RISK, BED ALARM ON. UP ONE ASSIST WITH GAIT BELT. SEE ASSESSMENT AND VITALS FOR OTHER DETAILS. CALL LIGHT WITHIN REACH, WILL CONTINUE PLAN OF CARE
[2018-08-25 16:00] VITALS: BP 125/59
[2018-08-25 20:00] VITALS: BP 105/86
--- NOTE | 2018-08-26 03:04 | NUR ---
ASSESSMENT: PT WITH FAIR PROGRESS TOWARDS DC GOALS. REMAIN ALERT AND ORIENT TIMES THREE, SOME FORGETFULNESS. SLEPT FOR THE MOST PART OF THE SHIFT. VSS, AFEBRILE. COLOSTOMY REMAIN INTACT, BURPED SEVERAL TIMES. AND EMPTIED TIMES ONE. NPO STATUS UNTIL AFTER BARIUM SWALLOW TEST. ORDER ENTERED FOR NPO. TOERATING PO INTAKE. C/O PAIN EARLIER DURING THE SHIFT THEN WENT TO SLEEP. RT TX PER ORDERS GIVEN. SAFETY MAINTAINED, WILL CONTINUE TO MONITOR.
[2018-08-26 04:36] LABS: INR 1.9; PROTIME 19.9 Seconds (9.20-11.50)
[2018-08-26 07:08] VITALS: BP 105/46
[2018-08-26 16:00] VITALS: BP 124/56
--- NOTE | 2018-08-26 16:23 | NUR ---
ASSESSMENT COMPLETE. PT FORGETFUL AT TIMES. LIDOCAINE PATCH STARTED FOR COCCYX PAIN FROM FALL. NO BRUISE OR REDNESS NOTED TO AREA. PT GIVEN IV PAIN MEDICATION ONCE NEEDED. PT IS ON 2L PER NC WITH ADEQAUTE SATS, VSS. COLOSTOMY IN PLACE WITH ADEQA[place] OUTPUT. ACHS ACCUCHECK WITHIN NORMAL LIMITS, TAKES LANTUS AT HS. PT/OT ORDERED TODAY. PT UP IN CHAIRS WITH WAFFLE CUSHION TODAY FOR MEALS. PT UP ONE ASSIST WITH WALKER AND GAIT BELT. SEE ASSESSMENT AND VITALS FOR OTHER DETAILS. CALL LIGHT WITHIN REACH, BED ALARM ON. WILL CONTINUE PLAN OF CARE
[2018-08-26 20:00] VITALS: BP 114/52
[2018-08-27 04:26] LABS: HEMATOCRIT 32.4 % (37.0-47.0); HEMOGLOBIN 10.5 gm/dL (12.0-15.0); MCH 28.5 pg (26.0-34.0); MCHC 32.3 g/dL (28.0-37.0); MCV 88.3 fL (80.0-100.0); MPV 10.3 fl. (7.2-11.1); RBC 3.67 mil/uL (4.20-5.00); RDW-CV 17.3 % (10.5-14.5); WBC 6.4 thou/uL (4.0-11.0)
[2018-08-27 04:32] LABS: CALCIUM 8.3 mg/dL (8.5-10.1); CREATININE 1.1 mg/dL (0.6-1.3); MAGNESIUM 1.8 mg/dL (1.8-2.4); POTASSIUM 4.3 mmol/L (3.5-5.1)
[2018-08-27 04:34] LABS: INR 1.9; PROTIME 19.3 Seconds (9.20-11.50)
--- NOTE | 2018-08-27 05:03 | NUR ---
ASSESSMENT: PT REMAIN ALERT AND ORIENT TIMES THREE. FORGETFUL AT TIMES. VSS, AFEBRILE. UP TO BR WITH WALKER AND SBA. C/O GENERLAIZED BACK PAIN,. PRN PAIN MEDS GIVEN. SLEPT MOST OF THE NIGHT. COLOSTOMY INTACT, BURPED AND EMPTIED. SLOW PROGRESS TOWARDS DC GOALS, WILL CONTINUE TO MONITOR.
[2018-08-27 08:03] VITALS: BP 102/50
--- NOTE | 2018-08-27 13:52 | NUR ---
RECEIVED CONSULT FOR POSSIBLE REHAB ADMISSION. CONSULT HAS BEEN ACKNOWLEDGED BY AIRCRAFT FUELER AND DR. YIN. Pt. ADMITTED WITH SOA, AMS AND SACRAL PAIN AFTER A RECENT FALL. Pts. INSURANCE IS OON WITH NO OON BENEFITS SO SHE IS UNABLE TO COME TO THIS REHAB UNIT. D/W SVEN WARD. Pt WOULD BENEFIT FROM [facility] FOR CONTINUED REHAB. THANK YOU FOR THIS CONSULT.
--- NOTE | 2018-08-27 14:59 | NUR ---
CONTINUE TO FOLLOW, MET WITH PT AND SPOKE WITH DTR/HILARIA OVER THE PHONE RE: DR MTZ'S RECOMMENDATION FOR REHAB OR SNF. PT WILL NOT QUAL[facility] FOR [facility] THEY ARE OUT OF NETWORK WITH HER INSURANCE. EXPLAINED THIS, UNDERSTOOD. PT AND DTR WERE BOTH AGAINST SNF SHE WENT TO [facility] IN THE PAST AND ONLY STAYED 12HRS. DTR WOULD LIKE TO TAKE PT HOME WITH HH, HAS USED [facility] AND LIKED THEM. DTR CAME BACK OUT TO TALK WITH CM NURSING HAD TOLD THEM PT COULD GO TO INPT REHAB AND IT WAS IN THE HOSPITAL. EXPLAINED AGAIN THAT WAS NOT AN OPTION, DTR UNDERSTOOD AND CONTINUES TO REFUSE SNF. PLAN HOME TOMORROW. UDPATED DR MTZ ON THEIR DECISION
[2018-08-27 15:23] VITALS: BP 93/46
--- NOTE | 2018-08-27 17:39 | NUR ---
ASSESSMENT COMPLETE. PT ALERT AND ORIENTED X2, FORGETFUL MOST OF THE DAY. PT/OT ORDERED. ACHS ACCUCHECKS ALL WNL. PT GIVEN PRN PAIN MEDICATION NEEDED. PT IS ON 2L PER NC, VSS. PT IS UP ONE ASSIST WITH WALKER AND GAIT BELT TO BATHROOM. PT TOLERATING MEALS. DENIES N/V. SKIN W/D/I. COLOSTOMY BAG CHANGED TODAY. BRIEF IN PLACE FOR STRESS INCONTINENCE. SEE ASSESSMENT AND VITALS FOR OTHER DETAILS. CALL LIGHT WITHIN REACH, WILL CONTINUE PLAN OF CARE
[2018-08-27 20:00] VITALS: BP 122/59
[2018-08-27 20:47] VITALS: BP 148/61
[2018-08-27 22:00] VITALS: BP 122/59
[2018-08-28] VITALS: BP 122/59
--- NOTE | 2018-08-28 05:56 | NUR ---
PATIENT WAS ANXIOUS ABOUT GOING HOME AT THE BEGINNING OF THE SHIFT BUT WAS ABLE TO SETTLE DOWN AFTER HAVING HER PM MEDS. SHE WAS ABLE TO SLEEP WELL THE ENTIRE NIGHT WITHOUT INCIDENT.
[2018-08-28 08:00] VITALS: BP 114/46
--- NOTE | 2018-08-28 09:31 | NUR ---
Nutrition: Pt admitted to Rehab with COPD exac. H/o COPD, dementia, HTN. RX noted. Labs: albumin 2.7, prealb 20.7, BG 161. Eating CHO controlled diet. Wt stable at 187#. No nutrition concerns. Low risk.
[2018-08-28 09:42] LABS: INR 1.9; PROTIME 19.4 Seconds (9.20-11.50)
[2018-08-28] MEDS ORDERED: LIDOPATCH1 EACH TOP (09:54)
[2018-08-28] MEDS ORDERED: PANTOPRAZOLE SO40 M1 PO (09:54)
[2018-08-28] MEDS ORDERED: CARAFATE 1 GM TA1 G1 PO (09:54)
[2018-08-28 12:58] VITALS: BP 114/46
--- NOTE | 2018-08-28 13:00 | NUR ---
Pt to dc home today with dtr and HH services to follow. MISTY faxed referral, final orders and med list to pt/family preference of [facility]. ph [phone] fax [phone]
--- NOTE | 2018-08-28 15:00 | NUR ---
DISCHARGE NOTE - ALL BELONGINGS SENT WITH PT. REMOVED IV WITHOUT DIFFICULTY. REVIEWED DISCHARGE PAPERS WITH DTR AND PT. NO QUESTIONS. HH SET-UP BY ED.
== END 2018-08-28 15:00 | disposition home health service (06) | DRG 70 ==
LOC: M.ERS 19:16 → M.3W 22:12 → M.TBA-ER 22:12 → M.3W 23:33
PROVIDERS: Emergency Medicine; Internal Medicine; ADMIT Family Medicine
PROC: 0DJ08ZZ Inspection of Upper Intestinal Tract, Via Natural or Artificial Opening Endoscopic (ICD-10-PCS; principal; 2018-08-25)
DX: G93.41 Metabolic encephalopathy (principal); R65.11 Systemic inflammatory response syndrome (SIRS) of non-infectious origin with acute organ dysfunction; J44.1 Chronic obstructive pulmonary disease with (acute) exacerbation; I48.91 Unspecified atrial fibrillation; I10 Essential (primary) hypertension; G30.9 Alzheimer's disease, unspecified; F02.80 Dementia in other diseases classified elsewhere, unspecified severity, without behavioral disturbance, psychotic disturbance, mood disturbance, and anxiety; E11.9 Type 2 diabetes mellitus without complications; S30.0XXA Contusion of lower back and pelvis, initial encounter; E78.5 Hyperlipidemia, unspecified; D50.9 Iron deficiency anemia, unspecified; K22.8 Other specified diseases of esophagus; R13.10 Dysphagia, unspecified; E87.6 Hypokalemia; E03.9 Hypothyroidism, unspecified; F41.9 Anxiety disorder, unspecified; K44.9 Diaphragmatic hernia without obstruction or gangrene; K31.9 Disease of stomach and duodenum, unspecified; Z90.49 Acquired absence of other specified parts of digestive tract; Z90.710 Acquired absence of both cervix and uterus; Z93.3 Colostomy status; Z86.718 Personal history of other venous thrombosis and embolism; Z79.01 Long term (current) use of anticoagulants; W18.39XA Other fall on same level, initial encounter; Y93.89 Activity, other specified; Y92.098 Other place in other non-institutional residence as the place of occurrence of the external cause; Y99.8 Other external cause status; Z79.899 Other long term (current) drug therapy

== ENCOUNTER 2018-10-13 16:25 | Emergency (ER) | payer OTHER ==
[~2018-10-13] VITALS: Ht 157.5 cm; Wt 87.1 kg
[~2018-10-13 16:25] MED LIST changes: +CARAFATE 1 GM TA1 G1 PO; +LIDOPATCH1 EACH TOP; +PANTOPRAZOLE SO40 M1 PO
[2018-10-13] MEDS ORDERED: TYLENOL325 MG PO (16:42)
[2018-10-13] MEDS ORDERED: RABANO YOD50 MG/15 M PO (16:46)
[2018-10-13] MEDS ORDERED: CRESTOR20 MG PO (16:47)
[2018-10-13] MEDS ORDERED: MYSOLINE50 MG PO (16:47)
[2018-10-13] MEDS ORDERED: IMITREX 50 MG T50 MG PO (16:47)
[2018-10-13 17:36] LABS: INFLUENZA A ANTIGEN None Detected (None Detect); INFLUENZA B ANTIGEN None Detected (None Detect)
[2018-10-13 17:44] LABS: ABSOLUTE MONOCYTES 1.1 thou/uL (0.0-1.2); ABSOLUTE NEUTROPHILS 7.8 thou/uL (1.6-8.1); BASOPHILS 0.4 %; EOSINOPHILS 0.3 %; HEMATOCRIT 33.4 % (37.0-47.0); HEMOGLOBIN 10.5 gm/dL (12.0-15.0); MCH 27.2 pg (26.0-34.0); MCHC 31.3 g/dL (28.0-37.0); MCV 86.8 fL (80.0-100.0); MONOCYTES 11.4 %; MPV 10.3 fl. (7.2-11.1); NUCLEATED RBCS 0 /100WBC; PLATELET COUNT* 236 thou/uL (150-400); POLYS 77.9 %; RBC 3.85 mil/uL (4.20-5.00); RDW-CV 16.7 % (10.5-14.5)
[2018-10-13 17:53] LABS: APTT 61.3 Seconds (25.0-31.3); INR 3.2; PROTIME 32.9 Seconds (9.20-11.50)
[2018-10-13 17:54] LABS: ALBUMIN 2.4 g/dL (3.4-5.0); CALCIUM 7.9 mg/dL (8.5-10.1); CREATININE 1.2 mg/dL (0.6-1.3); POTASSIUM 3.8 mmol/L (3.5-5.1); TOTAL BILIRUBIN 0.4 mg/dL (<0.1-1.0)
[2018-10-13] MEDS ORDERED: PREDNISONE 20 M20 MG PO (20:07)
[2018-10-13] MEDS ORDERED: KEFLEX500 M1 PO (20:07)
[2018-10-13 20:30] VITALS: BP 152/76
== END 2018-10-13 20:32 | disposition home or self-care (01) ==
LOC: M.ERS 16:25
PROVIDERS: Physician Assistant
DX: S82.091A Other fracture of right patella, initial encounter for closed fracture (principal); S16.1XXA Strain of muscle, fascia and tendon at neck level, initial encounter; S40.011A Contusion of right shoulder, initial encounter; S09.8XXA Other specified injuries of head, initial encounter; J20.9 Acute bronchitis, unspecified; M54.5 Low back pain; M54.6 Pain in thoracic spine; E11.9 Type 2 diabetes mellitus without complications; I48.91 Unspecified atrial fibrillation; I10 Essential (primary) hypertension; Z79.4 Long term (current) use of insulin; Z90.710 Acquired absence of both cervix and uterus; Z90.49 Acquired absence of other specified parts of digestive tract; W18.39XA Other fall on same level, initial encounter; Y93.89 Activity, other specified; Y92.89 Other specified places as the place of occurrence of the external cause; Y99.8 Other external cause status